=== PATIENT | female | born 1955 | race Hispanic/Latino ===

== ENCOUNTER 2024-12-21 06:41 | Day surgery (SDC) | payer OTHER, MEDICAID ==
[2024-12-21] VITALS (12 sets, daily range): BP systolic 101–152; BP diastolic 56–72; PULSE 70–89; RESP 15–18; TEMP 97.1–97.8
[~2024-12-21] VITALS: Ht 152.4 cm; Wt 84.4 kg
[~2024-12-21 06:41] MED LIST: 0.9%NACL 1000ML 1,000 ML IV ONE; ALLO100T PO; AMLO-257 PO; ASPI-1005 PO; ATOR10 PO; BUME1TAB6 PO; CARV25TA PO; DOCU100C33 PO; FLUT1BLS3 IH; INSU100V37 SQ; LACT10SO85 PO; LINA5TAB PO; MONT-39 PO; NIFE-40 PO; OMEP40CA21 PO; SERT-438 PO; SUCR500T PO; VESCEPA PO
[2024-12-21] MEDS: 0.9% NACL 500ML IV.SOLN 500 ML IV ONE (08:03)
[2024-12-21] MEDS ORDERED: proPOFol 10 MG/ML 20ML VIAL IV ONE (09:57)
== END 2024-12-21 11:30 | disposition home or self-care (01) ==
LOC: ENDO 06:41 → DAH 06:41 → ENDO 11:30
PROVIDERS: ATTEND Internal Medicine Gastroenterology
DX: Z12.11 Encounter for screening for malignant neoplasm of colon (principal); D12.3 Benign neoplasm of transverse colon; D50.9 Iron deficiency anemia, unspecified; K57.30 Diverticulosis of large intestine without perforation or abscess without bleeding; K31.89 Other diseases of stomach and duodenum; K29.50 Unspecified chronic gastritis without bleeding; R12 Heartburn; K59.01 Slow transit constipation; K76.0 Fatty (change of) liver, not elsewhere classified; M19.90 Unspecified osteoarthritis, unspecified site; K64.9 Unspecified hemorrhoids; E11.9 Type 2 diabetes mellitus without complications; I10 Essential (primary) hypertension; E78.5 Hyperlipidemia, unspecified; E66.9 Obesity, unspecified; Z68.38 Body mass index [BMI] 38.0-38.9, adult; Z86.2 Personal history of diseases of the blood and blood-forming organs and certain disorders involving the immune mechanism; Z98.890 Other specified postprocedural states; Z90.49 Acquired absence of other specified parts of digestive tract; Z98.891 History of uterine scar from previous surgery; Z98.51 Tubal ligation status; Z79.899 Other long term (current) drug therapy; Z79.82 Long term (current) use of aspirin
CPT/HCPCS: 82948 ×2; 43239; 45380; 45385; J7040; J7030 ×2; J2704; A4620; A4215; A4223; A7002; A4222; A4221; A4663; A4606; J3490